=== PATIENT | male | born 1955 | race Caucasian/White ===

== ENCOUNTER 2016-11-08 06:20 | Inpatient (IN) | payer OTHER, SELFPAY ==
[2016-10-29 15:15] LABS: INTERNATIONAL NORMAL RATI 2.3 UNITS (-); PROTIME (NOT ORD) 25.1 SEC (12.0-14.5)
[2016-10-29 15:22] LABS: A/G RATIO 0.9 (0.7-1.9); ALBUMIN 3.4 G/DL (3.5-5.0); ALKALINE PHOSPHATASE 83 U/L (45-117); CALCIUM, SERUM 8.6 MG/DL (8.5-10.4); CHLORIDE, SERUM 96 MMOL/L (96-112); CREATININE 0.72 MG/DL (0.70-1.30); GFR AFRICAN AMERICAN 115 ML/MIN (>=60); GFR NON AFRICAN AMERICAN 99 ML/MIN (>=60); GLOBULIN 3.9 G/DL (2.5-4.1); SGPT(ALT) 19 U/L (5-65); SODIUM, SERUM 138 MMOL/L (135-148); TOTAL BILIRUBIN 0.5 MG/DL (0-1.2); TOTAL PROTEIN 7.3 G/DL (6.0-8.5)
[2016-10-29 15:26] LABS: BUN (BLOOD UREA NITROGEN) 12 MG/DL (6-23); CO2 (CARBON DIOXIDE) 32 MMOL/L (24-34); GLUCOSE, SERUM 93 MG/DL (60-99); POTASSIUM, SERUM 4.2 MMOL/L (3.5-5.3); SGOT(AST) 17 U/L (5-40)
[2016-10-29 15:32] LABS: BASOPHILS 0.4 %; BASOPHILS ABSOLUTE 0.03 10/3/uL (0.0-0.16); EOSINOPHILS 2.8 %; HEMATOCRIT 37.3 % (40.0-51.0); HEMOGLOBIN 11.3 g/dL (13.6-17.8); IMMATURE GRANULOCYTES 0.4 %; IMMATURE GRANULOCYTES ABSOLUTE 0.03 10/3/uL (0.0-0.11); LYMPHOCYTES ABSOLUTE 1.53 10/3/uL (0.67-4.30); MEAN CORPUS HGB CONC 30.3 g/dL (32.0-36.0); MEAN CORPUSCULAR HEMOGLOB 23.4 pg (26.0-34.0); MEAN PLATELET VOLUME 8.2 fL (9.2-13.0); MONOCYTES 4.1 %; NEUTROPHILS 71.3 %; NEUTROPHILS ABSOLUTE 5.18 10/3/uL (2.02-8.40); PLATELET COUNT 263 10/3/uL (150-400); RBC DISTRIBUTION WIDTH 19.3 % (12.0-16.0); RED CELL COUNT 4.82 10/6/uL (4.7-6.1); WHITE BLOOD CELLS 7.3 10/3/uL (4.5-10.5)
[2016-10-29 15:40] LABS: MANUAL DIFF NO %; MEAN CORPUSCULAR VOLUME 77.4 fL (80-100)
[2016-10-29 16:18] LABS: ASCORBIC ACID (UR NOT ORDER) NEG (NEG); BILIRUBIN, URINE NEGATIVE (NEG); KETONE, URINE NEGATIVE (NEG); LEUKOCYTE ESTERASE(NOT OR NEG (NEG); WBC (NOT ORDERED) (RFLEX) 1 (0-5)
--- NOTE | ~2016-11-08 | CN ---
Consultation Report [place] [id number] [place]. [address] NAME: KIA PA : 51 STATUS : ADM IN PAT#: [id number] AGE: 61 ADM/REG DATE : 11/08/16 MR#: [id number] REPORT SERV DATE: 11/10/16 DICTATED BY: KENTRELL BASSETT DATE: 11/09/16 REPORT STATUS : Draft TRANSCRIBED BY: MODL DATE: 11/09/16 CONSULTATION REPORT DATE OF CONSULTATION: REFERRING PHYSICIAN: Dr. Salvador REASON FOR CONSULT: Diabetic management. HISTORY OF PRESENT ILLNESS: A 61-year-old white male with past medical history of aortic valve replacement, COPD, diabetes type 2, presenting with diabetes management. The patient is admitted under Dr. Salvador's service secondary to recurrent right lung pleural effusion. The patient states it has been going on for eight months. The patient has been followed up as an outpatient under Dr. Salvador's service. The patient states that within the last week, the patient was advised by Dr. Salvador for the patient to undergo decortication of his right lung. Currently, the patient is being seen in CVICU, status post right lung decortication. Unfortunately, the patient is under heavy medication for narcotics at this time and cannot give any medical history at this time. PAST MEDICAL HISTORY: As above. MEDICATIONS: The patient takes: 1. Advair 500/50 one puff b.i.d. 2. Amitriptyline 25 mg p.o. daily. 3. Anoro Ellipta 62.5/25 mcg one puff daily. 4. Lipitor 80 mg daily. 5. Creon 83834 delayed capsule release b.i.d. 6. Famotidine 20 mg daily. 7. Flovent 44 mcg aerosol inhaler two puffs b.i.d. 8. Humulin R concentrated insulin pump. 9. Invokana 100 mg p.o. daily. 10.Janumet XR 50 mg/1000 tablet extended release b.i.d. 11.Losartan 25 mg daily. 12.Lyrica 150 mg daily. 13.Metoprolol 25 mg half a tablet b.i.d. 14.Nitroglycerin sublingual p.r.n. 15.Pramipexole 0.5 mg q.h.s. 16.ProAir as directed. 17.Sertraline 100 mg daily. 18.Lasix 4 mg daily. 19.Vitamin D 50,000 one capsule weekly. 20.Zetia 10 mg daily. 21.Aldactone 25 mg half a tablet daily. 22.Xanax 1 mg one tablet four times a day p.r.n. 23.Coumadin 2 mg daily. Consultation Report [address] [place]. [address] NAME: KIA PA : 53 STATUS : ADM IN PAT#: [id number] AGE: 61 ADM/REG DATE : 11/08/16 MR#: [id number] REPORT SERV DATE: 11/10/16 DICTATED BY: KENTRELL BASSETT DATE: 11/09/16 REPORT STATUS : Draft TRANSCRIBED BY: ALESIA DATE: 11/09/16 24.Bumetanide 1 mg tablet daily. 25.Potassium 20 mEq daily. SOCIAL HISTORY: Nonsmoker and nondrinker. FAMILY HISTORY: Significant for heart disease. REVIEW OF SYSTEMS: A 10-point review of systems conducted, which were negative except for above complaints. PHYSICAL EXAMINATION: VITAL SIGNS: Temp 98, pulse of 96, respiratory rate 15, BP 141/84, and O2 saturation 94% on unknown liters. HEAD AND NECK: Normocephalic and atraumatic. CARDIOVASCULAR: S1 and S2. Regular rate and rhythm. LUNGS: Good air entry. No wheeze, rales, or rhonchi. A chest tube in place, right side. ABDOMEN: Soft, nontender, nondistended, and obese. EXTREMITIES: No clubbing, cyanosis, or edema. NEUROLOGIC: The patient is awake, alert, and oriented to self. Able to move all limbs spontaneously. No focal deficit. LABORATORY DATA: Sodium 142, potassium 3.5, chloride 103, bicarb 31, BUN 15, creatinine 0.97, glucose 235, calcium 8.0, magnesium 1.6, phosphate 1.9, and albumin 2.2. WBC 9.1, hemoglobin 9.7, hematocrit 32.1, and platelets 228. ASSESSMENT AND PLAN: Diabetic management. Currently, the patient is on insulin drip. From 11/08/2016 at 2300 hours until 11/09/2016 at 1500 hours, the patient approximately used 133 units of insulin. Currently, the patient is not even eating at this time while on insulin drip, although he has been taking a few crackers here and there. The patient does use an insulin pump at home. He follows up with Dr. Brand. The fact that the patient is not eating well at this time, we will continue insulin drip. Until the patient is able to tolerate p.o. intake, we can switch the insulin pump converted into Levemir and sliding scale. GAUTAM/ALESIA Kentrell Bassett MD / [id number] CC: Eh Salvador M.D. Consultation Report [address] [address] NAME: KIA PA : 53 STATUS : ADM IN PAT#: [id number] AGE: 61 ADM/REG DATE : 11/08/16 MR#: [id number] REPORT SERV DATE: 11/10/16 DICTATED BY: KENTRELL BASSETT DATE: 11/09/16 REPORT STATUS : Draft TRANSCRIBED BY: MODTaurus DATE: 11/09/16 Elliott Oswald MD
--- NOTE | ~2016-11-08 | CN ---
Consultation Report [facility] [address] [place]. [address] NAME: KIA DEL ROSARIO : 51 STATUS : ADM IN PAT#: [id number] AGE: 61 ADM/REG DATE : 11/08/16 MR#: [id number] REPORT SERV DATE: 11/08/16 DICTATED BY: MARILYN BILLS DATE: 11/08/16 REPORT STATUS : Draft TRANSCRIBED BY: MODL DATE: 11/08/16 PULMONARY CRITICAL CARE CONSULTATION DATE OF CONSULTATION: 11/08/2016 REASON FOR CONSULTATION: Ventilator management, status post right video-assisted thoracostomy with decortication of the right lung due to chronic right pleural effusion. HISTORY OF PRESENT ILLNESS: Mr. Del Rosario is a 61-year-old gentleman who is admitted to Dr. Salvador. He had recurrent right pleural effusion with some loculation and has failed drainage via thoracentesis. He has previously undergone coronary artery bypass grafting as well as a redo sternotomy for aortic valve replacement also per Dr. Salvador. He was most recently admitted in mid 2015 for his aortic valve. He was found in the operating room to have entrapped right lung with loculated recurrent pleural effusion and underwent a right video-assisted thoracoscopy with decortication of all three lobes of the right lung. A thick peel was noted over all three lobes, was decorticated, and sent for pathology. He had drainage of an old bloody effusion and two chest tubes were left in place following surgery. At this point, he has been moved to CVICU for slow ventilator wean and we have been asked to assist with ventilator management. PAST MEDICAL HISTORY: In addition to his coronary artery disease, status post coronary bypass grafting and redosternotomy for aortic valve replacement (due to aortic stenosis with a valve gradient previously of 0.97). He is a brittle type 1 diabetic who has previously used an insulin pump. He also has hypertension, dyslipidemia, obstructive sleep apnea, degenerative joint disease, osteoarthritis, GERD, and is morbidly obese. PAST SURGICAL HISTORY: His bypass as noted above, was in 2007. He has also had right shoulder surgery, several previous back surgeries, right foot surgery, and a right inguinal hernia repair. SOCIAL HISTORY: Long-standing tobacco abuser (greater than [id number] smoking history) with cessation in 2007 after his bypass surgery. He was also previous heavy user of alcohol. He also smoked marijuana for a number of years. Of note, he is unable to read or write according to nursing and previous medical record reports. FAMILY HISTORY: Sister has breast cancer. Other first-degree relatives with diabetes, hypertension, and coronary artery disease. ALLERGIES: INCLUDE AVELOX WHICH CAUSES HIVES, SHELLFISH WHICH CAUSES HIVES, IODINE WHICH CAUSES NAUSEA, VOMITING, AND BLISTERS. HOME MEDICATIONS: Include trazodone 200 mg p.o. at bedtime, torsemide 20 mg every morning, Janumet mg tablet twice daily, vitamin D supplement 50,000 units every 7 days for 4 weeks, pramipexole 0.5 mg at bedtime, Cozaar 25 mg every morning, metoprolol tartrate 25 mg Consultation Report [place] [id number] [facility] [address]. [address] NAME: KIA DEL ROSARIO : 51 STATUS : ADM IN PAT#: [id number] AGE: 61 ADM/REG DATE : 11/08/16 MR#: [id number] REPORT SERV DATE: 11/08/16 DICTATED BY: MARILYN BILLS DATE: 11/08/16 REPORT STATUS : Draft TRANSCRIBED BY: ALESIA DATE: 11/08/16 tablets 1/2 tablet p.o. twice daily, Lyrica 150 mg p.o. twice a day, amitriptyline 25 mg at bedtime, Zetia 10 mg every morning, atorvastatin 80 mg every morning, Zoloft 150 mg three times a day(?), Nitrostat sublingual 0.4 mg as needed for chest pain, Pepcid 20 mg daily, Invokana 100 mg every morning, spironolactone 12.5 mg every morning, Creon 72,000 units every meal, alprazolam 1 mg p.o. three times daily, Anoro Ellipta 62.5/25 one puff every morning, albuterol 2 puffs every morning, Zyrtec 10 mg every morning, Humulin R U-500 insulin pump continuous infusion, Coumadin 14 mg every morning (?), Bumex 1 mg every morning, Klor-Con 20 mEq every morning, and oxycodone 5 mg three times a day as needed for pain symptoms. REVIEW OF SYSTEMS: A comprehensive review of systems was completed and is negative except for those points described above in the history of present illness. PHYSICAL EXAMINATION: VITAL SIGNS: Blood pressure is 130/58, heart rate is 88, he is on CMV mode breathing 16 times per minute with a tidal volume of 450 mL and 8 of PEEP, and oxygen is 94% on oximetry probe on 50% FiO2. GENERAL: The patient is a chronically ill-appearing, male, who is intubated and sedated with propofol. HEENT: Head is atraumatic and normocephalic. Pupils are equal, round, and reactive to light. Extraocular movements are intact. Ears, nose, and mouth are unremarkable except for poor oral dentition. He has moist oral mucosa. NECK: Supple without JVD. He has a healed sternotomy scar and two right-sided chest tubes (large-bore) following surgery which are titling well and draining a serosanguineous fluid. Endotracheal tube is in place, and he has a subclavian central line in the right upper chest. He also has an arterial line. LUNGS: With a few coarse breath sounds on the right lower lobe, diminished on the left without wheezes on either side. ABDOMEN: Soft, obese, nontender, nondistended with positive bowel sounds in all four quadrants and no appreciable peritoneal signs. A Martin catheter is indwelling and draining translucent yellow urine. EXTREMITIES: Without clubbing, cyanosis, or significant edema. There is trace pitting at the pretibial area bilaterally (minimal). SKIN: Warm and dry with clean dressings applied two surgical incisions on the right chest. NEUROLOGIC: Exam is limited due to his sedation. PSYCHIATRIC: Exam is not feasible. DIAGNOSTIC DATA: Personal review of diagnostic workup: Pro time of 13.7, INR is 1.1. Hematocrit is 34. Metabolic profile shows sodium 142, hypokalemia with potassium of 3.4, glucose of 88. Initial blood gas showed a pH of 7.31, pCO2 of 68, pO2 of 208, basis excess of 8, a bicarb calculated at 34.2, glycohemoglobin level was 6.8. Followup blood gas showed pH 7.36, pCO2 of 61, O2 of 313, HC03 calculated at 33.9 on 100% FiO2. CBC shows white blood cell count is 9.2, hemoglobin 10.3, hematocrit of 35, and a platelet count of 312. Metabolic profile (follow up postoperative) shows normal renal function, mild hypokalemia at Consultation Report [place] [id number] [place]. [address] NAME: KIA DEL ROSARIO : 51 STATUS : ADM IN PAT#: [id number] AGE: 61 ADM/REG DATE : 11/08/16 MR#: [id number] REPORT SERV DATE: 11/08/16 DICTATED BY: MARILYN BILLS DATE: 11/08/16 REPORT STATUS : Draft TRANSCRIBED BY: MODL DATE: 11/08/16 3.5, otherwise unremarkable. Electrolytes with some evidence of chronic CO2 retention due to a carbon dioxide of 30, glucose is 140, and his chest x-ray shows a medical devices all in satisfactory position including two right-sided chest tubes, some atelectasis, and volume loss in the right lower lobe with some opacification over both lower lobes consistent with mild pulmonary vascular congestion (the patient does have a history of pulmonary hypertension reviewing his old records.) His last echocardiogram in our system is 07/01/2016 which showed normal LV size and systolic function with an estimated EF of 50% to 55% without wall motion abnormalities. Moderate diastolic dysfunction. Normal RV size and systolic function. Mild left atrial enlargement in the stable aortic valve bioprosthesis. The estimated PA systolic pressure was 23.32. IMPRESSION: 1. Acute hypoxemic and hypercapnic respiratory failure postoperatively following right VATS with three lobe decortication. 2. Coronary artery disease, status post previous coronary artery bypass grafting in 2007. 3. Aortic valve stenosis, status post aortic valve replacement in 2016. 4. Type 1 diabetes mellitus, which is moderately controlled with most recent A1c of 6.8. 5. Diastolic congestive heart failure. 6. Dyslipidemia. 7. Hepatic steatosis. 8. Chronic obstructive pulmonary disease with evidence of chronic CO2 retention in the setting of untreated obstructive sleep apnea. 9. Mild pulmonary hypertension. 10.Chronic right pleural effusion, status post the above procedures. 11.Hypokalemia. 12.Mild chronic kidney disease. 13.Morbid obesity. 14.Physical deconditioning. 15.History of tobacco abuse. PLAN: We will continue full ventilatory support this evening - we will change to a lung protective ventilation strategy and titrate oxygen support to a goal FiO2 sufficient to maintain oximetry sat 89% to 94% in the setting of underlying obstructive lung disease (he is on 4 L oxygen at home.) Plan to hold off sedation tomorrow morning and perform spontaneous breathing trial. He may require some gentle diuresis to successfully extubate him. We will monitor him hemodynamically and make further adjustments to his regimen as clinically warranted. We will continue insulin as needed to target a blood glucose of 140 to 180 while critically ill and tighten up control after that. We will correct electrolytes on an as needed basis and monitor his renal function carefully. Intubation orders will be completed, and he is a full code. Thank you for the consultation. We will follow along with you. Consultation Report [facility] [address] [facility] [place]. [address] NAME: KIA DEL ROSARIO : 51 STATUS : ADM IN PAT#: [id number] AGE: 61 ADM/REG DATE : 11/08/16 MR#: [id number] REPORT SERV DATE: 11/08/16 DICTATED BY: MARILYN BILLS DATE: 11/08/16 REPORT STATUS : Draft TRANSCRIBED BY: ALESIA DATE: 11/08/16 KANDI/ALESIA Marilyn Bills MD / [id number] CC: Eh Salvador M.D.
--- NOTE | ~2016-11-08 | DS ---
Discharge Summary [place] [id number] [place]. [address] NAME: PETER PA : 51 STATUS : DIS IN PAT#: [id number] AGE: 61 ADM/REG DATE : 11/08/16 MR#: [id number] REPORT SERV DATE: 11/24/16 DICTATED BY: SHAY SALVADOR DATE: 11/23/16 REPORT STATUS : Draft TRANSCRIBED BY: ALESIA DATE: 11/23/16 Data Collection from hospitalization DISCHARGE DIAGNOSES: 1. Right complex pleural effusion status post right VATS/decortication. 2. Pulmonary hypertension. 3. Type 2 diabetes mellitus-on insulin. 4. Gastroesophageal reflux disease. 5. Obstructive sleep apnea. 6. Hyperlipidemia. 7. Hypertension. 8. Hypertensive heart disease. 9. Former smoker. CONSULTATIONS: Dr. Marilyn Martinez. Dr. Kentrell Almonte. Dr. Demetri Pollard. PROCEDURES: 1. Right VATS with right lung decortication-complete, 11/08/2016. 2. Modified barium swallow study, 11/12/2016. 3. Venous Doppler ultrasound of the left lower extremity, 11/13/2016. PATHOLOGY: Pleura, right lung decortication-chronic pleuritis with scarring. No malignancy seen. DISCHARGE MEDICATIONS: Ventolin two puffs via inhaler every morning, Xanax 1 mg three times a day, Elavil 25 mg at bedtime, Lipitor 80 mg every morning, Invokana 100 mg every morning, Zyrtec 10 mg every morning, Cymbalta 60 mg daily, vitamin D 50,000 units every seven days, Zetia 10 mg every morning, Pepcid 20 mg every morning, Arnuity Ellipta one puff via inhaler daily, Humulin R as instructed, Creon 72,000 units with meals, Cozaar 25 mg every morning, Lopressor 12.5 mg twice a day, Nitrostat 0.4 mg as needed, Roxicodone 5 mg three times a day, Klor-Con 20 mEq every morning, Mirapex 0.5 mg at bedtime, Zoloft 100 mg at bedtime, Janumet one tablet twice a day, Aldactone 12.5 mg every morning, and Demadex 20 mg every morning, Desyrel 200 mg at bedtime, Anoro Ellipta one puff via inhaler every morning. He was instructed not to continue warfarin. CONDITION ON DISCHARGE: Stable. DISPOSITION: The patient was discharged home on a low-cholesterol, low-sodium, 1800-calorie cardiac/diabetic diet with activities as instructed. He would follow up with Peter Steiner, 12/03/[address] Elliott Oswald as instructed. HOSPITAL COURSE: This is a 61-year-old man, who had undergone two sternotomies by mo in the past. He had undergone a five-vessel bypass in 2007. In 2015, we did a redo-sternotomy with aortic valve replacement. His grafts were all still open. He had been transferred to [facility] for rehabilitation postoperatively, but had had persistent episodes of shortness of breath. Postoperatively, he had hypoxia and had been admitted to [facility] and treated for pneumonia in June. He did have a right pleural effusion. The patient has since recovered and was feeling better. However, he still had significant dyspnea with Discharge Summary [address] [address] NAME: PETER PA : 53 STATUS : DIS IN PAT#: [id number] AGE: 61 ADM/REG DATE : 11/08/16 MR#: [id number] REPORT SERV DATE: 11/24/16 DICTATED BY: SHAY SALVADOR DATE: 11/23/16 REPORT STATUS : Draft TRANSCRIBED BY: ALESIA DATE: 11/23/16 exertion and orthopnea. Recent chest CT scan demonstrated persistent right lower lobe and middle lobe atelectasis with effusion. Treatment options were discussed and it was elected to proceed with surgical intervention. He was admitted to the hospital at this time for further evaluation and treatment. Upon admission, he was taken to the operating room, where he underwent the above-mentioned procedure. He tolerated this well and there were no complications. Following this, he was seen by Dr. Marilyn Martinez, regarding ventilator management. In the operating room, he was found to have an entrapped right lung with loculated recurrent pleural effusion and had undergone a right video-assisted thoracoscopy with decortication of all three lobes of the right lung. A thick peel was noted over all three lobes and was decorticated and sent for pathology. He had drainage of an old bloody effusion and two chest tubes were left in place following surgery. He then moved to the Cardiovascular ICU for slow ventilator wean. Full ventilatory support would be continued that evening. We would change to a lung protective ventilation strategy and titrate oxygen support to a goal FiO2 sufficient to maintain oximetry saturation 89% to 94% in the setting of underlying obstructive lung disease. The patient is on 4 L of oxygen at home. We would plan to hold off sedation the following morning and performed spontaneous breathing trial. He may require some gentle diuresis to successfully extubate him. We would monitor him hemodynamically and make further adjustments to his regimen as warranted. Insulin would be continued as needed for a target glucose of 140-180 while he was critically ill and we would tighten up control after that. Electrolytes would be corrected on an as-needed basis and we would monitor his renal function closely. On postop day #1, he was still sedated on the ventilator. He would awaken. His lungs were clear. He could follow commands. Chest x-ray revealed bibasilar atelectasis/effusion. Chest tube was in place. He was extubated to nasal cannula and was recovering well. He was seen by Dr. Kentrell Almonte regarding diabetic management. The patient was under heavy medication for narcotics at this time. He is currently on an insulin drip. He was not eating at this time, although he did tolerate a few crackers here and there. He does use an insulin pump at home. Due to the fact that he was not eating well at this time, we would continue the insulin drip until he was able to tolerate oral intake. We could switch the insulin pump converted into Levemir and sliding scale. 11/10/2016, he was going to be transferred to the floor. He had some shortness of breath and difficulty swallowing. He had crackles in his right lung base. The following day, he underwent diabetes education. ABGs were going to be checked. His narcotic dosages were decreased. He had refused CPAP in the past. He did have a wet cough. Hemoglobin A1c was 6.8%. Speech-language pathology performed a bedside swallow study. He had wet gurgling, choking after swallows of water and applesauce. Aspiration precautions were in place. On 11/12/2016, a modified barium swallow study was performed. Aspiration precautions remained in place. He was much more alert and cognitively clear. He had no aspiration or penetration seen. O2 was being weaned on the 11/13/2016. He was in normal sinus rhythm. His tube had been removed. He was still not eating much. He does have a history of gout in the past. He did complain of some pain in the left knee. Ortho was going to be asked to consider steroid injection in the left knee to avoid systemic steroids. He was seen by Dr. Demetri Pollard. He had complained of the acute onset of left knee pain. He does use a cane and a walker. He has a limited community ambulator secondary to cardiac disease. He denied any recent trauma. He has a remote history of gouty arthritis in his feet and ankles. The Discharge Summary [place] [id number] [place]. [address] NAME: PETER PA : 51 STATUS : DIS IN PAT#: [id number] AGE: 61 ADM/REG DATE : 11/08/16 MR#: [id number] REPORT SERV DATE: 11/24/16 DICTATED BY: SHAY SALVADOR DATE: 11/23/16 REPORT STATUS : Draft TRANSCRIBED BY: ALESIA DATE: 11/23/16 left knee had 10-degree flexion contracture and 1+ effusion. There was pain with attempted varus/valgus. X-ray showed varus deformity. There was moderate medial joint space narrowing. There was [id number] tricompartmental osteoarthritis. He was felt to have possible gout, superimposed on osteoarthritis. A Depo injection was performed in the left knee. Venous Doppler ultrasound of the left lower extremity was performed and was negative. Discharge planning was performed. The pain in his knee had decreased. His swelling had decreased. He was encouraged to ambulate. On 11/15/2016, he was awake and alert. He was moving well. He had no new complaints. He had no wheezing or rales. Discharge instructions were given. Due to his improved and stable condition, he was discharged home with the above-stated instructions. Information collected by: Miriam Darling I submit the above information as my discharge summary. CARMEN/ALESIA Shay Salvador M.D. / [id number] CC: Shay Salvador M.D. MD Demetri Mcnulty M.D.
--- NOTE | ~2016-11-08 | OP ---
Record Of Operation [facility] [address] [place]. [address] NAME: KIA PA : 51 STATUS : ADM IN PAT#: [id number] AGE: 61 ADM/REG DATE : 11/08/16 MR#: [id number] REPORT SERV DATE: 11/08/16 DICTATED BY: SHAY SALVADOR DATE: 11/08/16 REPORT STATUS : Draft TRANSCRIBED BY: MODTaurus DATE: 11/08/16 DATE OF PROCEDURE: 11/08/2016 PREOPERATIVE DIAGNOSES: 1. 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 2. Status post redo sternotomy with aortic valve replacement. 3. History of coronary disease, status post previous coronary artery bypass grafting. 4. Morbid obesity. 5. Diabetes mellitus, insulin dependent, type 2. PROCEDURE PERFORMED: Right VATS with right lung decortication, complete. SURGEON: Shay Salvador M.D. ROADWAY ENGINEER: Brodie Mason. ANESTHESIA: General. INDICATIONS: This is a 61-year-old gentleman with a previous history of bypass in 2007 and in 2016 in May, he had a redo sternotomy with an aortic valve replacement. He did well postoperatively but would have trouble motivating himself and winded up going to [place]. He had episodes of shortness of breath and had a thoracentesis for right pleural effusion. He is eventually admitted to the hospital with pneumonia. He eventually recovered enough to go home and the patient has been seen by us in the office for recurrent right pleural effusion. He continues to have symptoms of dyspnea with exertion. Echocardiography demonstrated that the aortic prosthesis was functioning well and ventricular function was good with an ejection fraction greater than 50%. It was felt after a CT scan that the patient needed decortication because of the complex effusion and peel on the lung and this was discussed with the patient's family and they wished to proceed. FINDINGS AT OPERATION: 1. The right lung was completely entrapped and had a thick peel over it and it was rather difficult to remove. We did prevail and eventually complete decortication was achieved with good re-expansion of the lung into the space. 2. There was old blood in the pleural space and some of this was sent for cultures. Portion of the peel was sent for pathology. DESCRIPTION OF PROCEDURE: The patient was brought to the operating suite. General anesthesia was induced. Airway was secured with a dual lumen endotracheal tube. Lines secured by Anesthesia. Martin catheter was later placed. The patient was rolled in a left lateral decubitus position. Right chest was prepped with Hibiclens and ChloraPrep and draped with Ioban and sterile sheets. A single 3 to 4 cm VATS incision was made along the posterior axillary line and four intercostal spaces above the costal margin. This was carried through the subcutaneous Record Of [address] [address] NAME: KIA PA : 51 STATUS : ADM IN PAT#: [id number] AGE: 61 ADM/REG DATE : 11/08/16 MR#: [id number] REPORT SERV DATE: 11/08/16 DICTATED BY: SHAY SALVADOR DATE: 11/08/16 REPORT STATUS : Draft TRANSCRIBED BY: ALESIA DATE: 11/08/16 tissue and chest wall musculature. The intercostal musculature was divided and we entered the chest bluntly. The intercostal space was narrow secondary to the pleural peel. A protractor soft tissue retractor was later be able to be placed. Eventually two other VATS incisions were made along the anterior axillary line measuring 1 to 2 cm. One of these was 1 interspace above the largest of the VATS incision. The other was 2 interspaces below. Through these 3 VATS incisions, thoracoscopy and decortication was carried out. Examination of the lung demonstrated complex effusion with evidence of old blood. This was aspirated. Some of this fluid was sent for culture. We then spent the next 2.5 hours decorticating the right lung in its entirety. The lung was very much stuck to the chest wall. There was a very thick peel over a portion of the lung, especially the right lower lobe and middle lobe. We freed up the lung as much as possible and winded up with several pneumonotomies. Once decortication was completed, the chest was irrigated with sterile water and saline and hemostasis was obtained. Then two 32-Malian chest tubes were placed through the more anterior thoracoscopic port sites. These were secured to the skin. The lung was then ventilated and seen to fill the chest cavity very nicely. The Protractor soft tissue retractor was removed and the largest of the VATS incision was closed in layers of absorbable suture and skin closed in a subcuticular fashion. The patient tolerated the procedure well. There were no complications. Sponge and needle counts were correct. DISPOSITION: The patient was left intubated, sedated, and transported to the Intensive Care unit in a stable condition. ALDO/ALESIA Shay Salvador M.D. / [id number] CC: Shay Salvador M.D.
[~2016-11-08 06:20] MED LIST: ACET500CAP PO; ADVAIR INH; ALEVE220 MG PO; AMIT25 PO; ANORO ELLIPTA INH; ANOROELLIPTA INH; ASA5GR PO; ASAB PO; BUM1 PO; C1 PO; CELEXA40 MG PO; COZ25 PO; CREON DR 36,001 EACH; CREON DR 36,001 EACH PO; DEMA20 PO; DONNATAL PO; FLOVENT44 INH; HUMULIN R U-500; HUMULIN R1 ML SC; HUMULIN-R CONCEN3 ML SC; INVOKANA100 MG PO; JANUMET1 TA1 PO; KAPIDEX60 MG PO; KLOR-CON 1010 MEQ PO; KLOR-CON M2020 MEQ PO; LIPITOR80 MG PO; LIPOFEN150 MG PO; LOFIB160 PO; LOP100 PO; LOP25 PO; LYRICA150 MG PO; LYRICA50 PO; MIRAPEX5 PO; MUCUSRELIEF PO; NITROII20C TOP; NITROSTAT0.4 MG PO; NITROSTAT0.4 MG SL; OXYCOD PO; PEP20 PO; PERCOCET1 TA4 PO; PLAVIX PO; PRIN2.5 PO; PRIN5 PO; PROAIR HFA INH; PROTONIX PO; REG PO; SPIRIVA INH; SPIRO25 PO; SPIRO50 PO; TRAZ100 PO; ULTRAM50 PO; VENTOLIN HFA INH; VITD PO; XANAX1 MG PO; ZAROX2.5B PO; ZETIA PO; ZOCOR20 PO; ZOCOR40 PO; ZOL100 PO; ZYRTEC ALLGY10 MG PO
[2016-11-08 07:24] LABS: INTERNATIONAL NORMAL RATI 1.1 UNITS (-)
[2016-11-08 07:33] LABS: PROTIME (NOT ORD) 13.7 SEC (12.0-14.5)
[2016-11-08 11:34] LABS: BE (BASE EXCESS) 6.8 MEQ/L (0 +/- 2.5); CARBOXYHEMOGLOBIN 0.5 % (0-3); HCO3 (ACTUAL BICARBONATE) 33.9 MEQ/L (23-27); HEMOBLOGIN CONTENT 11.7 G/DL (14-18); INSTRUMENT SERIAL # 11843; METHEMOGLOBIN 0.8 % (0-3); O2 CONTENT 16.9 VOL% (18-24); PCO2 (CO2 TENSION) 61 MMHG (35-45); PO2 (O2 TENSION) 313 MMHG (79-93); SAMPLE Arterial; pH 7.36 (7.37-7.43)
[2016-11-08 12:32] LABS: BASOPHILS 0.1 %; BASOPHILS ABSOLUTE 0.01 10/3/uL (0.0-0.16); EOSINOPHILS 0.7 %; EOSINOPHILS ABSOLUTE 0.06 10/3/uL (0.0-0.53); HEMOGLOBIN 10.3 g/dL (13.6-17.8); IMMATURE GRANULOCYTES 0.1 %; IMMATURE GRANULOCYTES ABSOLUTE 0.01 10/3/uL (0.0-0.11); LYMPHOCYTES 14.3 %; LYMPHOCYTES ABSOLUTE 1.31 10/3/uL (0.67-4.30); MANUAL DIFF NO %; MEAN CORPUS HGB CONC 29.4 g/dL (32.0-36.0); MEAN CORPUSCULAR HEMOGLOB 22.6 pg (26.0-34.0); MEAN CORPUSCULAR VOLUME 76.9 fL (80-100); MEAN PLATELET VOLUME 8.4 fL (9.2-13.0); MONOCYTES 4.1 %; MONOCYTES ABSOLUTE 0.38 10/3/uL (0.21-1.20); NEUTROPHILS 80.7 %; PLATELET COUNT 312 10/3/uL (150-400); RBC DISTRIBUTION WIDTH 19.6 % (12.0-16.0); RED CELL COUNT 4.55 10/6/uL (4.7-6.1); WHITE BLOOD CELLS 9.2 10/3/uL (4.5-10.5)
[2016-11-08 12:45] LABS: BUN (BLOOD UREA NITROGEN) 9 MG/DL (6-23); CALCIUM, SERUM 8.3 MG/DL (8.5-10.4); CHLORIDE, SERUM 103 MMOL/L (96-112); CO2 (CARBON DIOXIDE) 30 MMOL/L (24-34); CREATININE 0.65 MG/DL (0.70-1.30); GFR AFRICAN AMERICAN 120 ML/MIN (>=60); GFR NON AFRICAN AMERICAN 104 ML/MIN (>=60); POTASSIUM, SERUM 3.5 MMOL/L (3.5-5.3); SODIUM, SERUM 141 MMOL/L (135-148)
[2016-11-08 12:46] LABS: GLUCOSE, SERUM 140 MG/DL (60-99)
[2016-11-09 03:32] LABS: BE (BASE EXCESS) 4.1 MEQ/L (0 +/- 2.5); CARBOXYHEMOGLOBIN 0.5 % (0-3); HCO3 (ACTUAL BICARBONATE) 30.3 MEQ/L (23-27); HEMOBLOGIN CONTENT 10.9 G/DL (14-18); INSTRUMENT SERIAL # 11843; METHEMOGLOBIN 0.7 % (0-3); MODE CMV; O2 CONTENT 14.8 VOL% (18-24); OPERATOR ID 17370; PCO2 (CO2 TENSION) 53 MMHG (35-45); PO2 (O2 TENSION) 101 MMHG (79-93); SAMPLE Arterial; TIDAL VOLUME 450 ML; pH 7.37 (7.37-7.43)
[2016-11-09 04:36] LABS: BASOPHILS 0.2 %; BASOPHILS ABSOLUTE 0.02 10/3/uL (0.0-0.16); EOSINOPHILS 0.1 %; EOSINOPHILS ABSOLUTE 0.01 10/3/uL (0.0-0.53); HEMATOCRIT 32.1 % (40.0-51.0); HEMOGLOBIN 9.7 g/dL (13.6-17.8); IMMATURE GRANULOCYTES 0.1 %; IMMATURE GRANULOCYTES ABSOLUTE 0.01 10/3/uL (0.0-0.11); LYMPHOCYTES 15.6 %; LYMPHOCYTES ABSOLUTE 1.41 10/3/uL (0.67-4.30); MANUAL DIFF NO %; MEAN CORPUS HGB CONC 30.2 g/dL (32.0-36.0); MEAN CORPUSCULAR HEMOGLOB 23.5 pg (26.0-34.0); MEAN CORPUSCULAR VOLUME 77.9 fL (80-100); MEAN PLATELET VOLUME 8.3 fL (9.2-13.0); MONOCYTES 5.2 %; MONOCYTES ABSOLUTE 0.47 10/3/uL (0.21-1.20); NEUTROPHILS 78.8 %; NEUTROPHILS ABSOLUTE 7.14 10/3/uL (2.02-8.40); PLATELET COUNT 228 10/3/uL (150-400); RBC DISTRIBUTION WIDTH 20.2 % (12.0-16.0); RED CELL COUNT 4.12 10/6/uL (4.7-6.1); WHITE BLOOD CELLS 9.1 10/3/uL (4.5-10.5)
[2016-11-09 04:55] LABS: CHLORIDE, SERUM 103 MMOL/L (96-112); CO2 (CARBON DIOXIDE) 31 MMOL/L (24-34); CREATININE 0.97 MG/DL (0.70-1.30); GFR AFRICAN AMERICAN 96 ML/MIN (>=60); GFR NON AFRICAN AMERICAN 83 ML/MIN (>=60); POTASSIUM, SERUM 3.5 MMOL/L (3.5-5.3); SODIUM, SERUM 142 MMOL/L (135-148)
[2016-11-09 04:58] LABS: BUN (BLOOD UREA NITROGEN) 15 MG/DL (6-23); GLUCOSE, SERUM 235 MG/DL (60-99); PHOSPHORUS, SERUM 1.9 MG/DL (2.5-4.5)
[2016-11-09 04:59] LABS: ALBUMIN 2.2 G/DL (3.5-5.0)
[2016-11-09] MEDS ORDERED: ARNUITY ELLIP200 MCG INH (09:51)
[2016-11-09] MEDS ORDERED: CYMBALTA60 PO (09:51)
[2016-11-09 13:38] LABS: POTASSIUM, SERUM 3.4 MMOL/L (3.5-5.3)
[2016-11-10 03:47] LABS: BASOPHILS 0.1 %; BASOPHILS ABSOLUTE 0.01 10/3/uL (0.0-0.16); EOSINOPHILS 1.7 %; EOSINOPHILS ABSOLUTE 0.16 10/3/uL (0.0-0.53); HEMATOCRIT 32.2 % (40.0-51.0); HEMOGLOBIN 9.6 g/dL (13.6-17.8); IMMATURE GRANULOCYTES 0.3 %; IMMATURE GRANULOCYTES ABSOLUTE 0.03 10/3/uL (0.0-0.11); LYMPHOCYTES 11.3 %; LYMPHOCYTES ABSOLUTE 1.04 10/3/uL (0.67-4.30); MANUAL DIFF NO %; MEAN CORPUS HGB CONC 29.8 g/dL (32.0-36.0); MEAN CORPUSCULAR HEMOGLOB 23.5 pg (26.0-34.0); MEAN CORPUSCULAR VOLUME 78.9 fL (80-100); MEAN PLATELET VOLUME 8.2 fL (9.2-13.0); MONOCYTES 6.7 %; MONOCYTES ABSOLUTE 0.62 10/3/uL (0.21-1.20); NEUTROPHILS 79.9 %; NEUTROPHILS ABSOLUTE 7.38 10/3/uL (2.02-8.40); PLATELET COUNT 229 10/3/uL (150-400); RBC DISTRIBUTION WIDTH 20.2 % (12.0-16.0); RED CELL COUNT 4.08 10/6/uL (4.7-6.1); WHITE BLOOD CELLS 9.2 10/3/uL (4.5-10.5)
[2016-11-10 04:09] LABS: A/G RATIO 0.6 (0.7-1.9); ALBUMIN 2.4 G/DL (3.5-5.0); CALCIUM, SERUM 8.3 MG/DL (8.5-10.4); CHLORIDE, SERUM 101 MMOL/L (96-112); CHOL/HDL RATIO(NOT ORDER) 2.8 (0-5); CHOLESTEROL 107 MG/DL (< 200); CO2 (CARBON DIOXIDE) 32 MMOL/L (24-34); CREATININE 0.56 MG/DL (0.70-1.30); GFR AFRICAN AMERICAN 128 ML/MIN (>=60); GFR NON AFRICAN AMERICAN 110 ML/MIN (>=60); HDL CHOLESTEROL 38 MG/DL (> 39); LDL CHOLESTEROL 48 MG/DL (< 130); NON-HDL CHOLESTEROL 69 MG/DL (< 160); PHOSPHORUS, SERUM 2.3 MG/DL (2.5-4.5); SGOT(AST) 33 U/L (5-40); SGPT(ALT) 19 U/L (5-65); SODIUM, SERUM 140 MMOL/L (135-148); TOTAL BILIRUBIN 0.8 MG/DL (0-1.2); TOTAL PROTEIN 6.4 G/DL (6.0-8.5); TRIGLYCERIDE 106 MG/DL (< 150)
[2016-11-10 04:12] LABS: ALKALINE PHOSPHATASE 70 U/L (45-117); BUN (BLOOD UREA NITROGEN) 11 MG/DL (6-23); GLUCOSE, SERUM 135 MG/DL (60-99); POTASSIUM, SERUM 4.1 MMOL/L (3.5-5.3)
[2016-11-10 19:58] LABS: ALLENS TEST Pos; BE (BASE EXCESS) 3.7 MEQ/L (0 +/- 2.5); CARBOXYHEMOGLOBIN 1.2 % (0-3); DEVICE NC; HCO3 (ACTUAL BICARBONATE) 30.1 MEQ/L (23-27); HEMOBLOGIN CONTENT 11.3 G/DL (14-18); INSTRUMENT SERIAL # 11843; METHEMOGLOBIN 0.6 % (0-3); O2 CONTENT 14.5 VOL% (18-24); OPERATOR ID 13744; PCO2 (CO2 TENSION) 54 MMHG (35-45); PO2 (O2 TENSION) 71 MMHG (79-93); SAMPLE Arterial; pH 7.36 (7.37-7.43)
[2016-11-11 04:06] LABS: BASOPHILS 0.3 %; BASOPHILS ABSOLUTE 0.02 10/3/uL (0.0-0.16); EOSINOPHILS 1.9 %; EOSINOPHILS ABSOLUTE 0.15 10/3/uL (0.0-0.53); HEMOGLOBIN 9.7 g/dL (13.6-17.8); IMMATURE GRANULOCYTES 0.3 %; IMMATURE GRANULOCYTES ABSOLUTE 0.02 10/3/uL (0.0-0.11); LYMPHOCYTES 11.1 %; LYMPHOCYTES ABSOLUTE 0.87 10/3/uL (0.67-4.30); MEAN CORPUS HGB CONC 28.5 g/dL (32.0-36.0); MEAN CORPUSCULAR HEMOGLOB 22.4 pg (26.0-34.0); MEAN CORPUSCULAR VOLUME 78.3 fL (80-100); MEAN PLATELET VOLUME 8.6 fL (9.2-13.0); MONOCYTES 4.9 %; MONOCYTES ABSOLUTE 0.38 10/3/uL (0.21-1.20); NEUTROPHILS 81.5 %; NEUTROPHILS ABSOLUTE 6.39 10/3/uL (2.02-8.40); PLATELET COUNT 265 10/3/uL (150-400); RBC DISTRIBUTION WIDTH 20.2 % (12.0-16.0); RED CELL COUNT 4.34 10/6/uL (4.7-6.1); WHITE BLOOD CELLS 7.8 10/3/uL (4.5-10.5)
[2016-11-11 04:11] LABS: MANUAL DIFF NO %
[2016-11-11 04:19] LABS: ALBUMIN 2.4 G/DL (3.5-5.0); BUN (BLOOD UREA NITROGEN) 12 MG/DL (6-23); CALCIUM, SERUM 8.8 MG/DL (8.5-10.4); CHLORIDE, SERUM 100 MMOL/L (96-112); CO2 (CARBON DIOXIDE) 35 MMOL/L (24-34); CREATININE 0.69 MG/DL (0.70-1.30); GFR AFRICAN AMERICAN 117 ML/MIN (>=60); GFR NON AFRICAN AMERICAN 101 ML/MIN (>=60); GLUCOSE, SERUM 153 MG/DL (60-99); PHOSPHORUS, SERUM 2.7 MG/DL (2.5-4.5); POTASSIUM, SERUM 3.9 MMOL/L (3.5-5.3); SODIUM, SERUM 141 MMOL/L (135-148)
[2016-11-11 14:50] LABS: BE (BASE EXCESS) 5.8 MEQ/L (0 +/- 2.5); CARBOXYHEMOGLOBIN 1.7 % (0-3); DEVICE Nasal Cannula 2.5L; HCO3 (ACTUAL BICARBONATE) 31.9 MEQ/L (23-27); HEMOBLOGIN CONTENT 10.5 G/DL (14-18); INSTRUMENT SERIAL # 8083; METHEMOGLOBIN 0.2 % (0-3); O2 CONTENT 13.4 VOL% (18-24); OPERATOR ID 35754; PCO2 (CO2 TENSION) 54 MMHG (35-45); PO2 (O2 TENSION) 67 MMHG (79-93); SAMPLE Arterial; pH 7.39 (7.37-7.43)
[2016-11-12 05:37] LABS: BUN (BLOOD UREA NITROGEN) 14 MG/DL (6-23); CALCIUM, SERUM 8.9 MG/DL (8.5-10.4); CHLORIDE, SERUM 104 MMOL/L (96-112); CO2 (CARBON DIOXIDE) 31 MMOL/L (24-34); CREATININE 0.56 MG/DL (0.70-1.30); GFR AFRICAN AMERICAN 128 ML/MIN (>=60); GFR NON AFRICAN AMERICAN 110 ML/MIN (>=60); GLUCOSE, SERUM 140 MG/DL (60-99); POTASSIUM, SERUM 3.5 MMOL/L (3.5-5.3); SODIUM, SERUM 143 MMOL/L (135-148)
[2016-11-12 05:44] LABS: BASOPHILS 0.5 %; BASOPHILS ABSOLUTE 0.03 10/3/uL (0.0-0.16); EOSINOPHILS 2.2 %; EOSINOPHILS ABSOLUTE 0.14 10/3/uL (0.0-0.53); HEMATOCRIT 32.5 % (40.0-51.0); HEMOGLOBIN 9.6 g/dL (13.6-17.8); IMMATURE GRANULOCYTES 0.3 %; IMMATURE GRANULOCYTES ABSOLUTE 0.02 10/3/uL (0.0-0.11); LYMPHOCYTES 16.9 %; LYMPHOCYTES ABSOLUTE 1.07 10/3/uL (0.67-4.30); MEAN CORPUS HGB CONC 29.5 g/dL (32.0-36.0); MEAN CORPUSCULAR VOLUME 77.8 fL (80-100); MEAN PLATELET VOLUME 8.5 fL (9.2-13.0); MONOCYTES 5.5 %; MONOCYTES ABSOLUTE 0.35 10/3/uL (0.21-1.20); NEUTROPHILS 74.6 %; NEUTROPHILS ABSOLUTE 4.71 10/3/uL (2.02-8.40); PLATELET COUNT 278 10/3/uL (150-400); RBC DISTRIBUTION WIDTH 19.9 % (12.0-16.0); RED CELL COUNT 4.18 10/6/uL (4.7-6.1); WHITE BLOOD CELLS 6.3 10/3/uL (4.5-10.5)
[2016-11-12 05:50] LABS: MANUAL DIFF NO %
[2016-11-13 05:19] LABS: BASOPHILS 0.3 %; BASOPHILS ABSOLUTE 0.02 10/3/uL (0.0-0.16); EOSINOPHILS 2.8 %; EOSINOPHILS ABSOLUTE 0.17 10/3/uL (0.0-0.53); HEMATOCRIT 31.8 % (40.0-51.0); HEMOGLOBIN 9.7 g/dL (13.6-17.8); IMMATURE GRANULOCYTES 0.3 %; IMMATURE GRANULOCYTES ABSOLUTE 0.02 10/3/uL (0.0-0.11); LYMPHOCYTES 21.1 %; LYMPHOCYTES ABSOLUTE 1.28 10/3/uL (0.67-4.30); MEAN CORPUS HGB CONC 30.5 g/dL (32.0-36.0); MEAN CORPUSCULAR HEMOGLOB 23.5 pg (26.0-34.0); MEAN PLATELET VOLUME 8.2 fL (9.2-13.0); MONOCYTES 5.8 %; MONOCYTES ABSOLUTE 0.35 10/3/uL (0.21-1.20); NEUTROPHILS 69.7 %; NEUTROPHILS ABSOLUTE 4.23 10/3/uL (2.02-8.40); PLATELET COUNT 263 10/3/uL (150-400); RBC DISTRIBUTION WIDTH 19.5 % (12.0-16.0); RED CELL COUNT 4.13 10/6/uL (4.7-6.1); WHITE BLOOD CELLS 6.1 10/3/uL (4.5-10.5)
[2016-11-13 05:21] LABS: MANUAL DIFF NO %
[2016-11-13 05:32] LABS: BUN (BLOOD UREA NITROGEN) 13 MG/DL (6-23); CALCIUM, SERUM 9.3 MG/DL (8.5-10.4); CHLORIDE, SERUM 98 MMOL/L (96-112); CO2 (CARBON DIOXIDE) 31 MMOL/L (24-34); CREATININE 0.52 MG/DL (0.70-1.30); GFR AFRICAN AMERICAN 132 ML/MIN (>=60); GFR NON AFRICAN AMERICAN 113 ML/MIN (>=60); GLUCOSE, SERUM 175 MG/DL (60-99); POTASSIUM, SERUM 3.3 MMOL/L (3.5-5.3); SODIUM, SERUM 140 MMOL/L (135-148)
[2016-11-14 05:48] LABS: BASOPHILS 0.1 %; BASOPHILS ABSOLUTE 0.01 10/3/uL (0.0-0.16); EOSINOPHILS 0.1 %; EOSINOPHILS ABSOLUTE 0.01 10/3/uL (0.0-0.53); HEMOGLOBIN 11.1 g/dL (13.6-17.8); IMMATURE GRANULOCYTES 0.4 %; IMMATURE GRANULOCYTES ABSOLUTE 0.03 10/3/uL (0.0-0.11); LYMPHOCYTES 13.9 %; LYMPHOCYTES ABSOLUTE 1.05 10/3/uL (0.67-4.30); MEAN CORPUS HGB CONC 30.6 g/dL (32.0-36.0); MEAN CORPUSCULAR HEMOGLOB 23.1 pg (26.0-34.0); MEAN CORPUSCULAR VOLUME 75.5 fL (80-100); MEAN PLATELET VOLUME 8.9 fL (9.2-13.0); MONOCYTES 4.2 %; MONOCYTES ABSOLUTE 0.32 10/3/uL (0.21-1.20); NEUTROPHILS 81.3 %; NEUTROPHILS ABSOLUTE 6.15 10/3/uL (2.02-8.40); RBC DISTRIBUTION WIDTH 18.9 % (12.0-16.0); RED CELL COUNT 4.81 10/6/uL (4.7-6.1); WHITE BLOOD CELLS 7.6 10/3/uL (4.5-10.5)
[2016-11-14 05:50] LABS: HEMATOCRIT 36.3 % (40.0-51.0); MANUAL DIFF NO %; PLATELET COUNT 376 10/3/uL (150-400)
[2016-11-14 05:55] LABS: CALCIUM, SERUM 10.2 MG/DL (8.5-10.4); CHLORIDE, SERUM 90 MMOL/L (96-112); CO2 (CARBON DIOXIDE) 35 MMOL/L (24-34); CREATININE 0.76 MG/DL (0.70-1.30); GFR AFRICAN AMERICAN 113 ML/MIN (>=60); GFR NON AFRICAN AMERICAN 97 ML/MIN (>=60); POTASSIUM, SERUM 3.8 MMOL/L (3.5-5.3); SODIUM, SERUM 136 MMOL/L (135-148)
[2016-11-14 05:57] LABS: BUN (BLOOD UREA NITROGEN) 17 MG/DL (6-23); GLUCOSE, SERUM 287 MG/DL (60-99)
[2016-11-15 06:15] LABS: ALBUMIN 2.7 G/DL (3.5-5.0); CHLORIDE, SERUM 87 MMOL/L (96-112); CO2 (CARBON DIOXIDE) 37 MMOL/L (24-34); CREATININE 0.76 MG/DL (0.70-1.30); GFR AFRICAN AMERICAN 113 ML/MIN (>=60); GFR NON AFRICAN AMERICAN 97 ML/MIN (>=60); POTASSIUM, SERUM 3.3 MMOL/L (3.5-5.3); SODIUM, SERUM 135 MMOL/L (135-148)
[2016-11-15 06:16] LABS: BUN (BLOOD UREA NITROGEN) 26 MG/DL (6-23); GLUCOSE, SERUM 212 MG/DL (60-99)
[2016-11-15 06:17] LABS: PHOSPHORUS, SERUM 4.5 MG/DL (2.5-4.5)
== END 2016-11-15 14:17 | disposition home or self-care (01) | DRG 163 ==
LOC: SDC/OF 06:20 → CVICU 09:34 → 5NO 11-11 12:57
PROVIDERS: Hospitalist; Internal Medicine; Nurse Practitioner Family; Thoracic Surgery (Cardiothoracic Vascular Surgery)
PROC: 5A1945Z Respiratory Ventilation, 24-96 Consecutive Hours (ICD-10-PCS; 2016-11-08)
PROC: 0BH17EZ Insertion of Endotracheal Airway into Trachea, Via Natural or Artificial Opening (ICD-10-PCS; 2016-11-08)
PROC: 0BDN4ZZ Extraction of Right Pleura, Percutaneous Endoscopic Approach (ICD-10-PCS; principal; 2016-11-08 07:45)
DX: J90 Pleural effusion, not elsewhere classified (principal); J95.821 Acute postprocedural respiratory failure; I50.32 Chronic diastolic (congestive) heart failure; I27.2 Other secondary pulmonary hypertension; Z68.41 Body mass index [BMI] 40.0-44.9, adult; D62 Acute posthemorrhagic anemia; E66.01 Morbid (severe) obesity due to excess calories; J44.9 Chronic obstructive pulmonary disease, unspecified; E11.9 Type 2 diabetes mellitus without complications; Z79.4 Long term (current) use of insulin; Z79.899 Other long term (current) drug therapy; Z95.1 Presence of aortocoronary bypass graft; Z95.2 Presence of prosthetic heart valve; I25.10 Atherosclerotic heart disease of native coronary artery without angina pectoris; E78.5 Hyperlipidemia, unspecified; G47.33 Obstructive sleep apnea (adult) (pediatric)
CPT/HCPCS: 31720; 36415; 36600; 71010; 71020; 73560-LT; 74230; 80048; 80053; 80061; 80069; 81001; 82330; 82803; 82805; 82947; 82962; 83036; 83735; 84132; 84295; 85014; 85025; 85610; 86850; 86900; 86901; 87015; 87070; 87075; 87102; 87116; 87205; 87641; 88305; 92610-GN; 92611-GN; 93005; 93971; 94002; 94003; 94640; 94660; 94770; 97161-GP; A9270-GY; C1751; C1769; C9113; J0330; J0690; J1120; J2250; J2370; J2795; J3010; P9047